=== PATIENT | female | born 1970 | race Caucasian/White ===

== ENCOUNTER 2022-11-28 22:02 | Emergency (ER) | payer BC, OTHER ==
[2022-11-28 22:29] VITALS: BP 136/82; PULSE 77; RESP 19; TEMP 98.6; BMI 25.7
[2022-11-29] MEDS ORDERED: DIPHTH,PERTUSS(ACELL),TET 0.5 ML DISP.SYRIN IM ONE ×2 (01:02)
== END 2022-11-29 01:07 | disposition home or self-care (01) ==
LOC: JER 22:02
PROC: 3E0234Z Introduction of Serum, Toxoid and Vaccine into Muscle, Percutaneous Approach (ICD-10-PCS; principal; 2022-11-28)
DX: S61.101A Unspecified open wound of right thumb with damage to nail, initial encounter (principal); W27.4XXA Contact with kitchen utensil, initial encounter
CPT/HCPCS: 90715; 99284-25